=== PATIENT | female | born 1960 | race American Indian/Alaskan Native ===

== ENCOUNTER 2017-06-03 02:38 | Emergency (ER) | payer OTHER ==
--- NOTE | 2017-06-03 06:35 | XRay Report ---
FINAL REPORT PROCEDURE: XR CHEST ROUTINE 2V TECHNIQUE: A portable AP chest radiograph was obtained at 06/03/2017 06:03 (EST) . CPT 26066 HISTORY: SOB COMPARISON: No prior studies are available for comparison. FINDINGS: Heart: Normal. Mediastinum/Vessels: Normal. Lungs/Pleural space: Normal. Bony thorax: No acute osseous abnormality. Life support devices: None. IMPRESSION: No acute cardiopulmonary abnormality.
[2017-06-03] MEDS ORDERED: GUAIFENESIN DM SYRUP PO ONE (08:31)
[2017-06-03] MEDS ORDERED: MOTRIN PO ONE (08:31)
[2017-06-03] MEDS ORDERED: DUONEB *Not for PRN Use IH ONE (08:32)
[2017-06-03 08:37] LABS: Bacteria,Urine 1+ /HPF (Negative); Bilirubin,Urine NEG (Negative); Blood,Urine NEG (Negative); Color,Urine Yellow (Yellow); Mucus,Urine FEW /HPF; Nitrite,Urine NEG (Negative); Protein,Urine <15 mg/dL mg/dL (Negative)
[2017-06-03 09:09] VITALS: BP 142/96
--- NOTE | 2017-06-03 09:10 | Emergency Department Report ---
- General Chief Complaint: Upper Respiratory Infection Stated Complaint: URI SX Time Seen by Provider: 06/03/17 08:09 Source: patient Mode of arrival: Ambulatory Limitations: No Limitations - History of Present Illness Initial Comments: 57-year-old female past medical history brain aneurysm, CVA, hypertension, carotid aneurysm presents with complaint of 3 weeks of persistent cough, slightly productive of yellow sputum, postnasal drip, runny nose, intermittent sore throat. Patient is awake alert and oriented 3 not in acute distress fully lucid and nontoxic appearing. Patient is concerned she may have influenza. Denies abdominal pain, states she becomes nauseous after coughing fits. States she has had some sick contacts recently may have had the flu. MD Complaint: cough, rhinorrhea, nasal congestion Onset/Timin -: week(s) Severity: moderate Consistency: constant Improves With: nothing Context: sick contacts Associated Symptoms: rhinorrhea, nasal congestion, cough Treatments Prior to Arrival: "cold medicine" - Related Data Home Medications Medication Instructions Recorded Confirmed Last Taken Hydrochlorothiazide [Hctz] 12.5 mg PO QDAY 01/22/16 01/22/16 Unknown Lisinopril [Zestril] 40 mg PO DAILY 01/22/16 01/22/16 Unknown Previous Rx's Medication Instructions Recorded Last Taken Type Albuterol Sulfate [Ventolin HFA] 2 puff IH Q4H PRN #1 hfa.aer.ad 06/03/17 Unknown Rx Azithromycin [Zithromax Z-DORA] 250 mg PO QDAY #1 pack 06/03/17 Unknown Rx Benzonatate [Tessalon Perles] 100 mg PO Q8HR PRN #30 capsule 06/03/17 Unknown Rx Dextromethorphan Hb/Doxylamine 10 ml PO Q6H PRN #1 liquid 06/03/17 Unknown Rx [Safetussin Pm Liquid] Dextromethorphan/Benzocaine 1 each PO Q4H PRN #1 box 06/03/17 Unknown Rx [Cepacol Sorethroat-Cough Torres] Allergies Allergy/AdvReac Type Severity Reaction Status Date / Time acetaminophen Allergy Unknown Verified 01/22/16 16:15 [From Darvocet-N] propoxyphene napsylate Allergy Unknown Verified 01/22/16 16:15 [From Darvocet-N] ED Review of Systems ROS: Stated complaint: URI SX Other details as noted in HPI Constitutional: denies: chills, fever Eyes: denies: eye pain, eye discharge, vision change ENT: denies: ear pain, throat pain Respiratory: cough. denies: shortness of breath, wheezing Cardiovascular: denies: chest pain, palpitations Endocrine: no symptoms reported Gastrointestinal: denies: abdominal pain, nausea, diarrhea Genitourinary: denies: urgency, dysuria, discharge Musculoskeletal: denies: back pain, joint swelling, arthralgia Skin: denies: rash, lesions Neurological: denies: headache, weakness, paresthesias Psychiatric: denies: anxiety, depression Hematological/Lymphatic: denies: easy bleeding, easy bruising ED Past Medical Hx - Past Medical History Previous Medical History?: Yes Hx Hypertension: Yes Hx CVA: Yes Additional medical history: Right sided carotid aneurysm - Surgical History Past Surgical History?: No - Social History Smoking Status: Never Smoker Substance Use Type: Alcohol - Medications Home Medications: Home Medications Medication Instructions Recorded Confirmed Last Taken Type Hydrochlorothiazide [Hctz] 12.5 mg PO QDAY 01/22/16 01/22/16 Unknown History Lisinopril [Zestril] 40 mg PO DAILY 01/22/16 01/22/16 Unknown History Albuterol Sulfate [Ventolin HFA] 2 puff IH Q4H PRN #1 hfa.aer.ad 06/03/17 Unknown Rx Azithromycin [Zithromax Z-DORA] 250 mg PO QDAY #1 pack 06/03/17 Unknown Rx Benzonatate [Tessalon Perles] 100 mg PO Q8HR PRN #30 capsule 06/03/17 Unknown Rx Dextromethorphan Hb/Doxylamine 10 ml PO Q6H PRN #1 liquid 06/03/17 Unknown Rx [Safetussin Pm Liquid] Dextromethorphan/Benzocaine 1 each PO Q4H PRN #1 box 06/03/17 Unknown Rx [Cepacol Sorethroat-Cough Torres] ED Physical Exam - General Limitations: No Limitations General appearance: alert, in no apparent distress - Head Head exam: Present: atraumatic, normocephalic - Eye Eye exam: Present: normal appearance, PERRL, EOMI - ENT ENT exam: Present: mucous membranes moist - Neck Neck exam: Present: normal inspection, full ROM - Respiratory Respiratory exam: Present: normal lung sounds bilaterally (lungs clear to auscultation bilaterally). Absent: respiratory distress - Cardiovascular Cardiovascular Exam: Present: regular rate, normal rhythm. Absent: systolic murmur, diastolic murmur, rubs, gallop - GI/Abdominal GI/Abdominal exam: Present: soft (abdomen soft nontender nondistended), normal bowel sounds - Extremities Exam Extremities exam: Present: normal inspection - Back Exam Back exam: Present: normal inspection - Neurological Exam Neurological exam: Present: alert, oriented X3, CN II-XII intact, normal gait - Psychiatric Psychiatric exam: Present: normal affect, normal mood - Skin Skin exam: Present: warm, dry, intact, normal color. Absent: rash ED Course Vital Signs 06/03/17 05:43 Temperature 98.1 F Pulse Rate 81 Respiratory 16 Rate Blood Pressure 136/82 O2 Sat by Pulse 98 Oximetry ED Medical Decision Making - Medical Decision Making A/P: Acute bronchitis 1-x-ray unremarkable, flu swab negative. I tested patient given her age and other medical comorbidities. 2-vital signs stable for discharge 3-Tessalon Perles, throat lozenges, albuterol inhaler, safetussin ( for HTN pts) ,azithromycin 4-follow-up with primary care doctor Critical care attestation.: If time is entered above; I have spent that time in minutes in the direct care of this critically ill patient, excluding procedure time. ED Disposition Clinical Impression: Acute bronchitis Qualifiers: Bronchitis organism: unspecified organism Qualified Code(s): J20.9 - Acute bronchitis, unspecified Disposition: - TO HOME OR SELFCARE Is pt being admited?: No Does the pt Need Aspirin: No Condition: Stable Instructions: Acute Bronchitis (ED) Prescriptions: Albuterol Sulfate [Ventolin HFA] 2 puff IH Q4H PRN #1 hfa.aer.ad PRN Reason: Shortness Of Breath Azithromycin [Zithromax Z-DORA] 250 mg PO QDAY #1 pack Benzonatate [Tessalon Perles] 100 mg PO Q8HR PRN #30 capsule PRN Reason: Cough Dextromethorphan Hb/Doxylamine [Safetussin Pm Liquid] 10 ml PO Q6H PRN #1 liquid PRN Reason: Cough Dextromethorphan/Benzocaine [Cepacol Sorethroat-Cough Torres] 1 each PO Q4H PRN #1 box PRN Reason: Sore Throat Referrals: [facility] [Outside] - 3-5 Days [facility] [Outside] - 3-5 Days Forms: Work/School Release Form(ED) Time of Disposition: 09:12
== END 2017-06-03 09:58 | disposition home or self-care (01) ==
LOC: ED 02:38
DX: J20.9 Acute bronchitis, unspecified (principal); I10 Essential (primary) hypertension; Z87.891 Personal history of nicotine dependence; Z88.8 Allergy status to other drugs, medicaments and biological substances
CPT/HCPCS: 71046; 81001; 87400; 94640

== ENCOUNTER 2018-06-19 06:39 | Inpatient (IN) | payer OTHER ==
--- NOTE | 2018-06-19 08:53 | Emergency Department Report ---
ED Chest Pain HPI - General Chief Complaint: Chest Pain Stated Complaint: PAIN ON CHEST Time Seen by Provider: 06/19/18 08:49 Source: patient Mode of arrival: Ambulatory Limitations: No Limitations - History of Present Illness Initial Comments: Patient reports right and left side chest wall pain that started last night around 6pm while lying in bed. She denies dizziness, SOB, N/V, leg pain or recent traveling Complaint: chest pain Onset/Timin -: days(s) Time: 18:00 Onset: during rest Pain Location: left chest, right chest Pain Radiation: none Severity: moderate Severity scale (0 -10): 5 Quality: pressure Consistency: intermittent Improves With: rest Worsens With: movement Context: other (none) re: denies: nausea, vomting, diaphoresis, dyspnea, sense of impending doom Other Symptoms: denies: cough, fever, syncope, rash, acid taste in mouth, leg swelling, palpitations, burping Treatments Prior to Arrival: none Aspirin use within the Past 7 Days: (0) No - Related Data On Oral Contraceptives: No Home Medications Medication Instructions Recorded Confirmed Last Taken Lisinopril [Zestril] 40 mg PO DAILY 01/22/16 06/19/18 Unknown Carvedilol [Coreg] 6.25 mg PO BID 06/19/18 06/19/18 Unknown Previous Rx's Medication Instructions Recorded Last Taken Type AtorvaSTATin [Lipitor] 40 mg PO QHS tablet 06/21/18 Unknown Rx Potassium Chloride [K-Dur] 8 meq PO QDAY #30 tablet 06/21/18 Unknown Rx amLODIPine [Norvasc] 10 mg PO QDAY tablet 06/21/18 Unknown Rx hydroCHLOROthiazide [HCTZ] 12.5 mg PO QDAY capsule 06/21/18 Unknown Rx Allergies Allergy/AdvReac Type Severity Reaction Status Date / Time acetaminophen Allergy Unknown Verified 01/22/16 16:15 [From Darvocet-N] propoxyphene napsylate Allergy Unknown Verified 01/22/16 16:15 [From Darvocet-N] Heart Score - HEART Score History: Slightly suspicious EKG: Normal Age: 45-65 Risk factors: 1-2 risk factors Troponin: < normal limit HEART Score: 2 - Critical Actions Critical Actions: 0-3 pts:0.9-1.7%risk of adverse cardiac event.Candidate for discharge ED Review of Systems ROS: Stated complaint: PAIN ON CHEST Other details as noted in HPI Constitutional: denies: chills, fever Eyes: denies: eye pain, eye discharge, vision change ENT: denies: ear pain, throat pain Respiratory: denies: cough, shortness of breath, SOB with exertion, wheezing Cardiovascular: chest pain. denies: palpitations, dyspnea on exertion, edema, syncope, paroxysmal nocturnal dyspnea Endocrine: no symptoms reported Gastrointestinal: denies: abdominal pain, nausea, diarrhea Genitourinary: denies: urgency, dysuria, discharge Musculoskeletal: denies: back pain, joint swelling, arthralgia Skin: denies: rash, lesions Neurological: denies: headache, weakness, paresthesias Psychiatric: denies: anxiety, depression Hematological/Lymphatic: denies: easy bleeding, easy bruising ED Past Medical Hx - Past Medical History Previous Medical History?: Yes Hx Hypertension: Yes Hx CVA: Yes Additional medical history: Right sided carotid aneurysm - Surgical History Past Surgical History?: No - Social History Smoking Status: Never Smoker Substance Use Type: None - Medications Home Medications: Home Medications Medication Instructions Recorded Confirmed Last Taken Type Lisinopril [Zestril] 40 mg PO DAILY 01/22/16 06/19/18 Unknown History Carvedilol [Coreg] 6.25 mg PO BID 06/19/18 06/19/18 Unknown History AtorvaSTATin [Lipitor] 40 mg PO QHS tablet 06/21/18 Unknown Rx Potassium Chloride [K-Dur] 8 meq PO QDAY #30 tablet 06/21/18 Unknown Rx amLODIPine [Norvasc] 10 mg PO QDAY tablet 06/21/18 Unknown Rx hydroCHLOROthiazide [HCTZ] 12.5 mg PO QDAY capsule 06/21/18 Unknown Rx ED Physical Exam - General Limitations: No Limitations General appearance: alert, in no apparent distress - Head Head exam: Present: atraumatic, normocephalic - Eye Eye exam: Present: normal appearance - ENT ENT exam: Present: mucous membranes moist - Neck Neck exam: Present: normal inspection, full ROM. Absent: tenderness, meningismus, lymphadenopathy, thyromegaly - Respiratory Respiratory exam: Present: normal lung sounds bilaterally, chest wall tenderness (reproducible right and left ). Absent: respiratory distress, wheezes, rales, rhonchi, stridor, accessory muscle use, decreased breath sounds, prolonged expiratory - Cardiovascular Cardiovascular Exam: Present: regular rate, normal rhythm, normal heart sounds. Absent: bradycardia, tachycardia, irregular rhythm, systolic murmur, diastolic murmur, rubs, gallop - GI/Abdominal GI/Abdominal exam: Present: soft, normal bowel sounds. Absent: distended, tenderness, guarding, rebound, rigid - Extremities Exam Extremities exam: Present: normal inspection, full ROM, normal capillary refill. Absent: tenderness, pedal edema, joint swelling - Back Exam Back exam: Present: normal inspection, full ROM - Neurological Exam Neurological exam: Present: alert, oriented X3, CN II-XII intact, normal gait, reflexes normal. Absent: motor sensory deficit - Psychiatric Psychiatric exam: Present: normal affect, normal mood - Skin Skin exam: Present: warm, dry, intact, normal color. Absent: rash ED Course Vital Signs 06/19/18 06/19/18 06/19/18 06:42 06:44 11:50 Temperature 98.2 F 98.2 F Pulse Rate 79 77 61 Respiratory 20 20 18 Rate Blood Pressure 148/85 Blood Pressure 148/85 120/77 [Right] O2 Sat by Pulse 100 100 99 Oximetry 06/19/18 06/19/18 06/19/18 12:00 13:17 13:18 Temperature Pulse Rate 61 61 Respiratory 20 Rate Blood Pressure 120/77 120/77 Blood Pressure [Right] O2 Sat by Pulse Oximetry - Reevaluation(s) Reevaluation #1: 06/19/18 10:15 pain medication, EKG, imaging and laboratory studies ordered Reevaluation #2: 06/19/18 12:[address] Headley LUIS score - Luis Score Age > 65: (0) No Aspirin use within the Past 7 Days: (0) No 3 or more CAD Risk Factors: (0) No 2 or more Angina events in past 24 hrs: (0) No Known CAD with more than 50% Stenosis: (0) No Elevated Cardiac Markers: (0) No ST Deviation Greater than 0.5mm: (0) No LUIS Score: 0 ED Medical Decision Making - Lab Data Result diagrams: 06/19/18 09:07 06/19/18 09:07 Lab Results 06/19/18 06/19/18 Range/Units 09:07 09:07 WBC 6.9 (4.5-11.0) K/mm3 RBC 4.32 (3.65-5.03) M/mm3 Hgb 12.5 (10.1-14.3) gm/dl Hct 37.9 (30.3-42.9) % MCV 88 (79-97) fl MCH 29 (28-32) pg MCHC 33 (30-34) % RDW 14.0 (13.2-15.2) % Plt Count 323 (140-440) K/mm3 Lymph % (Auto) 28.1 (13.4-35.0) % [place] % (Auto) 8.8 H (0.0-7.3) % Eos % (Auto) 1.6 (0.0-4.3) % Baso % (Auto) 0.7 (0.0-1.8) % Lymph # 1.9 (1.2-5.4) K/mm3 [place] # 0.6 (0.0-0.8) K/mm3 Eos # 0.1 (0.0-0.4) K/mm3 Baso # 0.0 (0.0-0.1) K/mm3 Seg Neutrophils % 60.8 (40.0-70.0) % Seg Neutrophils # 4.2 (1.8-7.7) K/mm3 Sodium 142 (137-145) mmol/L Potassium 3.6 (3.6-5.0) mmol/L Chloride 100.7 (98-107) mmol/L Carbon Dioxide 29 (22-30) mmol/L Anion Gap 16 mmol/L BUN 13 (7-17) mg/dL Creatinine 0.8 (0.7-1.2) mg/dL Estimated GFR > 60 ml/min BUN/Creatinine Ratio 16 % Glucose 102 H (65-100) mg/dL Calcium 9.8 (8.4-10.2) mg/dL Total Bilirubin 0.30 (0.1-1.2) mg/dL AST 19 (5-40) units/L ALT 18 (7-56) units/L Alkaline Phosphatase 82 (35-129) units/L Troponin T < 0.010 (0.00-0.029) ng/mL Total Protein 7.7 (6.3-8.2) g/dL Albumin 3.9 (3.9-5) g/dL Albumin/Globulin Ratio 1.0 % - EKG Data EKG shows normal: sinus rhythm Rate: normal - EKG Data When compared to previous EKG there are: no significant change Interpretation: no acute changes, normal EKG - Radiology Data Radiology results: image reviewed The cardiomediastinal silhouette is normal. No focal consolidation. Mild linear opacities are seen in the left midlung. No pleural effusion. No pneumothorax. No acute osseous abnormality. IMPRESSION: Mild subsegmental left midlung atelectasis versus scarring. - Medical Decision Making During the course of ED, pain medication, EKG, imaging and laboratory studies ordered. Patient declined pain medication at this time because her pain has subsided. Imaging and laboratory studies were unremarkable. Patient's care was transferred over to Dr. Headley for admission to the hospital. No visible distress noted. - Differential Diagnosis Chest Pain, UT, Chostochondritis Critical Care Time: No Critical care attestation.: If time is entered above; I have spent that time in minutes in the direct care of this critically ill patient, excluding procedure time. ED Disposition Clinical Impression: Chest pain Qualifiers: Chest pain type: unspecified Qualified Code(s): R07.9 - Chest pain, unspecified Disposition: -09 OP ADMIT IP TO THIS HOSP Is pt being admited?: Yes Does the pt Need Aspirin: Yes Condition: Stable Instructions: Chest Pain (ED) Prescriptions: Potassium Chloride [K-Dur] 8 meq PO QDAY #30 tablet Referrals: ISELA LOPEZ MD [Primary Care Provider] - 3-5 Days
[2018-06-19] MEDS ORDERED: TORADOL IM ONE (09:34)
[2018-06-19 09:47] LABS: Basophils % (Auto) 0.7 % (0.0-1.8); Eosinophils # (Auto) 0.1 K/mm3 (0.0-0.4); Eosinophils % (Auto) 1.6 % (0.0-4.3); Hematocrit 37.9 % (30.3-42.9); Hemoglobin 12.5 gm/dl (10.1-14.3); Lymphocytes # (Auto) 1.9 K/mm3 (1.2-5.4); Lymphocytes % (Auto) 28.1 % (13.4-35.0); Mean Corpuscular HGB Conc 33 % (30-34); Mean Corpuscular Volume 88 fl (79-97); Monocytes # (Auto) 0.6 K/mm3 (0.0-0.8); Monocytes % (Auto) 8.8 % (0.0-7.3); Platelet Count 323 K/mm3 (140-440); Red Blood Count 4.32 M/mm3 (3.65-5.03)
[2018-06-19 09:48] LABS: Alanine Aminotransferase 18 units/L (7-56); Albumin 3.9 g/dL (3.9-5); BUN/Creatinine Ratio 16; Blood Urea Nitrogen 13 mg/dL (7-17); Calcium 9.8 mg/dL (8.4-10.2); Hemolysis Index 4
--- NOTE | 2018-06-19 11:10 | XRay Report ---
FINAL REPORT EXAM: XRAY CHEST 2 VIEWS HISTORY: chest pain TECHNIQUE: Frontal and lateral chest radiographs. PRIORS: 06/03/2017. FINDINGS: The cardiomediastinal silhouette is normal. No focal consolidation. Mild linear opacities are seen in the left midlung. No pleural effusion. No pneumothorax. No acute osseous abnormality. IMPRESSION: Mild subsegmental left midlung atelectasis versus scarring.
[2018-06-19 11:53] LABS: INR 0.84 (0.87-1.13)
[2018-06-19 11:54] LABS: Partial Thromboplastin Time 26.9 Sec. (24.2-36.6)
[2018-06-19] MEDS ORDERED: BABY ASPIRIN PO STA (12:37)
[2018-06-19] MEDS ORDERED: ZOFRAN IV PRN (12:37)
[2018-06-19] MEDS ORDERED: TYLENOL PO PRN (12:37)
[2018-06-19] MEDS ORDERED: PROVENTIL IH PRN (12:37)
[2018-06-19] MEDS ORDERED: NITROSTAT SL PRN (12:37)
[2018-06-19] MEDS ORDERED: SODIUM CHLORIDE FLUSH SYRINGE 10 ML IV PRN ×2 (12:37)
--- NOTE | 2018-06-19 12:37 | History and Physical Report ---
History of Present Illness Chief complaint: My chest hurts History of present illness: 58 YO Female with HTN, Obesity, CVA presents to ED for evaluation. Pt states that she has experienced pain in her chest over the past 1 day. Pt states that pain is 5-7/10, substernal, worsened with exertion, relieved with rest, inte rmittent, nonradiating. Pt acknowledges decreased exercise tolerance, and shortness of breath with exertion. Pt denies fever, chills, palpitations, shortness of breath, unilateral leg swelling, calf pain, prolonged travel/immobility, individual/family history of DVT/PE, skin rash, or recent ill contacts. Pt seen and evaluated in ED and found to have Chest pain, as well as suspected Diastolic CHF. Pt admitted to telemetry. Past History Past Medical History: diabetes, hypertension Past Surgical History: No surgical history Social history: single. denies: smoking, alcohol abuse, prescription drug abuse Family history: diabetes, hypertension Medications and Allergies Allergies Allergy/AdvReac Type Severity Reaction Status Date / Time acetaminophen Allergy Unknown Verified 01/22/16 16:15 [From Darvocet-N] propoxyphene napsylate Allergy Unknown Verified 01/22/16 16:15 [From Darvocet-N] Home Medications Medication Instructions Recorded Confirmed Last Taken Type Lisinopril [Zestril] 40 mg PO DAILY 01/22/16 06/19/18 Unknown History hydroCHLOROthiazide [Hctz] 12.5 mg PO QDAY 01/22/16 06/19/18 Unknown History Amlodipine Besylate [Norvasc] 10 mg PO QDAY 06/19/18 06/19/18 Unknown History Atorvastatin Calcium [Lipitor] 40 mg PO QDAY 06/19/18 06/19/18 Unknown History Carvedilol [Coreg] 6.25 mg PO BID 06/19/18 06/19/18 Unknown History Review of Systems Constitutional: no weight loss, no weight gain, no fever, no chills Ears, nose, mouth and throat: no ear pain, no ear discharge, no tinnitis, no d ecreased hearing, no nose pain Breasts: no change in shape, no swelling, no mass Cardiovascular: chest pain, dyspnea on exertion, decreased exercise tolerance Exam - Constitutional Vitals: Temp Pulse Resp BP Pulse Ox 98.2 F 61 20 120/77 99 06/19/18 06:42 06/19/18 11:50 06/19/18 12:00 06/19/18 11:50 06/19/18 11:50 General appearance: Present: mild distress, obese - EENT Eyes: Present: PERRL ENT: hearing intact, clear oral mucosa - Neck Neck: Present: supple, normal ROM - Respiratory Respiratory effort: normal Respiratory: bilateral: CTA - Cardiovascular Heart Sounds: Present: S1 & S2. Absent: rub, click - Extremities Extremities: pulses symmetrical, No edema Peripheral Pulses: within normal limits - Abdominal General gastrointestinal: Present: soft, non-tender, non-distended, normal bowel sounds Female genitourinary: Present: normal - Integumentary Integumentary: Present: clear, warm, dry - Musculoskeletal Musculoskeletal: gait normal, strength equal bilaterally - Psychiatric Psychiatric: appropriate mood/affect, intact judgment & insight - Neurologic Neurologic: CNII-XII intact, moves all extremities Results - Labs CBC & Chem 7: 06/19/18 09:07 06/19/18 09:07 Labs: Abnormal lab results 06/19/18 06/19/18 06/19/18 Range/Units 09:07 09:07 11:30 [place] % (Auto) 8.8 H (0.0-7.3) % PT 11.9 L (12.2-14.9) Sec. INR 0.84 L (0.87-1.13) Glucose 102 H (65-100) mg/dL Assessment and Plan - Patient Problems (1) Chest pain Current Visit: Yes Status: Acute Qualifiers: Ischemic chest pain type: stable angina pectoris Plan to address problem: Admit to telemetry: Serial cardiac enzymes, ekg, telemetry, stress test, cardiology consulted in ED, morphine, supplemental oxygen, nitro, aspirin. (2) Diastolic CHF Current Visit: Yes Status: Suspected Qualifiers: Heart failure chronicity: acute Qualified Code(s): I50.31 - Acute diastolic (congestive) heart failure Plan to address problem: Admit to telemetry: Cardiology consulted in ED, serial cardiac enzymes, BNP, D dimer, Echo, Afterload reduction, monitor uop q shift, daily weight, strict I/O, (3) Obesity hypoventilation syndrome Current Visit: Yes Status: Acute Plan to address problem: supplemental oxygen, NIPPV as clinically indicated, increased physical activity and balanced diet at discharge (4) GERD (gastroesophageal reflux disease) Current Visit: Yes Status: Acute Plan to address problem: PPI therapy, outpatient GI F/U for screening endoscopy (5) DVT prophylaxis Current Visit: Yes Status: Acute Plan to address problem: SCD to BLE while in bed.
[2018-06-19 13:00] LABS: Chol/HDL Ratio 2.66 %
[2018-06-19] MEDS ORDERED: COREG ONE (13:14)
[2018-06-19] MEDS ORDERED: ZESTRIL ONE (13:14)
[2018-06-19] MEDS ORDERED: HCTZ ONE (13:15)
[2018-06-19] MEDS ORDERED: NORVASC ONE (13:15)
[2018-06-19] MEDS: COREG PO SCH ×2 (13:17→22:02)
[2018-06-19] MEDS: HCTZ PO SCH (13:17)
[2018-06-19] MEDS: ZESTRIL PO SCH (13:18)
[2018-06-19] MEDS: NORVASC PO SCH (13:18)
[2018-06-19] MEDS: SODIUM CHLORIDE FLUSH SYRINGE 10 ML IV SCH (22:03)
[2018-06-20] MEDS: NORVASC PO SCH (11:39)
[2018-06-20] MEDS: COREG PO SCH ×2 (11:58→22:37)
[2018-06-20] MEDS: HCTZ PO SCH (12:00)
[2018-06-20] MEDS: SODIUM CHLORIDE FLUSH SYRINGE 10 ML IV SCH ×2 (12:01→22:38)
[2018-06-20] MEDS: ZESTRIL PO SCH (12:01)
--- NOTE | 2018-06-20 12:18 | Consultation ---
History of Present Illness Consult date: 06/20/18 Consult reason: chest pain History of present illness: 58 YO Female with HTN, Obesity, prior CVA who is currently admitted with chest pain. She describes the pain as a substernal pain which is worsened with exertion, relieved with rest, intermittent, nonradiating. Pt acknowledges decreased exercise tolerance, and shortness of breath with exertion. Pt denies fever, chills, palpitations, shortness of breath, unilateral leg swelling, calf pain, prolonged travel/immobility, individual/family history of DVT/PE, skin rash, or recent ill contacts. She had echocardiogram on 01/22/16 which revealed normal LVEF of 60-65% and no signfiicant valvular lesions. ECG reveals sinus bradycardia at 59 bpm and is otherwise unremarkable. Past History Past Medical History: diabetes, hypertension Past Surgical History: No surgical history Social history: single. denies: smoking, alcohol abuse, prescription drug abuse Family history: diabetes, hypertension Medications and Allergies Allergies Allergy/AdvReac Type Severity Reaction Status Date / Time acetaminophen Allergy Unknown Verified 01/22/16 16:15 [From Darvocet-N] propoxyphene napsylate Allergy Unknown Verified 01/22/16 16:15 [From Darvocet-N] Home Medications Medication Instructions Recorded Confirmed Last Taken Type Lisinopril [Zestril] 40 mg PO DAILY 01/22/16 06/19/18 Unknown History hydroCHLOROthiazide [Hctz] 12.5 mg PO QDAY 01/22/16 06/19/18 Unknown History Amlodipine Besylate [Norvasc] 10 mg PO QDAY 06/19/18 06/19/18 Unknown History Atorvastatin Calcium [Lipitor] 40 mg PO QDAY 06/19/18 06/19/18 Unknown History Carvedilol [Coreg] 6.25 mg PO BID 06/19/18 06/19/18 Unknown History Active Meds: Active Medications Acetaminophen (Tylenol) 650 mg PO Q4H PRN PRN Reason: Pain MILD(1-3)/Fever >100.5/TERESA Albuterol (Proventil) 2.5 mg IH Q4H PRN PRN Reason: Shortness Of Breath Amlodipine Besylate (Norvasc) 10 mg PO QDAY JACQUI Last Admin: 06/20/18 11:39 Dose: 10 mg Documented by: Atorvastatin Calcium (Lipitor) 40 mg PO QHS [facility] Last Admin: 06/19/18 22:03 Dose: 40 mg Documented by: Carvedilol (Coreg) 6.25 mg PO BID [facility] Last Admin: 06/20/18 11:58 Dose: 6.25 mg Documented by: Hydrochlorothiazide (Hctz) 12.5 mg PO QDAY [facility] Last Admin: 06/20/18 12:00 Dose: Not Given Documented by: Lisinopril (Zestril) 40 mg PO QDAY [facility] Last Admin: 06/20/18 12:01 Dose: Not Given Documented by: Nitroglycerin (Nitrostat) 0.4 mg SL Q5M PRN PRN Reason: Chest Pain Ondansetron HCl (Zofran) 4 mg IV Q8H PRN PRN Reason: Nausea And Vomiting Sodium Chloride (Sodium Chloride Flush Syringe 10 Ml) 10 ml IV BID [facility] Last Admin: 06/20/18 12:01 Dose: Not Given Documented by: Sodium Chloride (Sodium Chloride Flush Syringe 10 Ml) 10 ml IV PRN PRN PRN Reason: LINE FLUSH Sodium Chloride (Sodium Chloride Flush Syringe 10 Ml) 10 ml IV PRN PRN PRN Reason: LINE FLUSH Review of Systems All systems: negative (per hpi) Physical Examination Vital Signs Temp Pulse Resp BP Pulse Ox 98.2 F 79 20 148/85 100 06/19/18 06:42 06/19/18 06:42 06/19/18 06:42 06/19/18 06:42 06/19/18 06:42 General appearance: no acute distress HEENT: Positive: PERRL, EOMI Neck: Positive: neck supple Cardiac: Positive: Reg Rate and Rhythm Lungs: Positive: clear to auscultation Abdomen: Positive: Soft, Active Bowel Sounds Results 06/19/18 09:07 06/19/18 09:07 Lipids 06/19/18 Range/Units Unknown Triglycerides 73 (2-149) mg/dL Cholesterol 141 (50-199) mg/dL HDL Cholesterol 53 (40-59) mg/dL Cholesterol/HDL Ratio 2.66 % Assessment and Plan Chest pain with typical and atypical features for angina DM Htn Recommend: Check MPI tomorrow
--- NOTE | 2018-06-20 16:26 | Progress Note ---
Assessment and Plan (1) Chest pain Current Visit: Yes Status: Acute Qualifiers: Ischemic chest pain type: stable angina pectoris Plan to address problem: troponins negative For MPI on Thursday If negative discharge (2) Diastolic CHF Current Visit: Yes Status: Suspected Qualifiers: Heart failure chronicity: acute Qualified Code(s): I50.31 - Acute diastolic (congestive) heart failure Plan to address problem: AEcho, Afterload reduction, monitor uop q shift, daily weight, strict I/O, (3) Obesity hypoventilation syndrome Current Visit: Yes Status: Acute Plan to address problem: supplemental oxygen, NIPPV as clinically indicated, increased physical activity and balanced diet at discharge (4) GERD (gastroesophageal reflux disease) Current Visit: Yes Status: Acute Plan to address problem: PPI therapy, outpatient GI F/U for screening endoscopy (5) DVT prophylaxis Current Visit: Yes Status: Acute Plan to address problem: SCD to BLE while in bed. Subjective Date of service: 06/20/18 Principal diagnosis: Chest pain r/o [place] Interval history: Chest pain better Objective - Constitutional Vitals: Vital Signs - 12hr 06/20/18 06/20/18 06/20/18 05:00 05:11 11:23 Temperature 98.0 F Pulse Rate 61 65 64 Respiratory 20 Rate Blood Pressure 107/63 100/60 O2 Sat by Pulse 97 98 Oximetry 06/20/18 06/20/18 06/20/18 11:39 11:58 12:01 Temperature Pulse Rate 65 64 64 Respiratory Rate Blood Pressure 107/63 100/63 100/63 O2 Sat by Pulse Oximetry General appearance: Present: no acute distress, well-nourished - EENT Eyes: PERRL, EOM intact ENT: hearing intact, clear oral mucosa Ears: bilateral: normal - Neck Neck: supple, normal ROM - Respiratory Respiratory effort: normal Respiratory: bilateral: CTA - Breasts Breasts: normal - Cardiovascular Heart rate: 78 Rhythm: regular Heart Sounds: Present: S1 & S2. Absent: gallop, rub Extremities: no ischemia, pulses intact, No edema, normal color, Full ROM - Gastrointestinal General gastrointestinal: Present: soft, non-tender, non-distended, normal bowel sounds - Genitourinary Female genitourinary: normal - Integumentary Integumentary: clear, warm, dry - Musculoskeletal Musculoskeletal: 1, strength equal bilaterally - Neurologic Neurologic: moves all extremities - Psychiatric Psychiatric: memory intact, appropriate mood/affect, intact judgment & insight - Labs CBC & Chem 7: 06/19/18 09:07 06/19/18 09:07
[2018-06-21] MEDS ORDERED: LEXISCAN IV ONE ×2 (09:30→09:31)
[2018-06-21] MEDS ORDERED: ZESTRIL PO SCH (10:00)
[2018-06-21] MEDS: HCTZ PO SCH (11:44)
[2018-06-21] MEDS: COREG PO SCH (11:44)
[2018-06-21] MEDS: NORVASC PO SCH (11:44)
[2018-06-21 11:45] VITALS: BP 142/92
--- NOTE | 2018-06-21 14:48 | Discharge Summary ---
Providers - Providers Date of Admission: 06/19/18 13:01 Date of discharge: 06/21/18 Attending physician: LANA TIPTON 06/19/18 Consult to Cardiac Rehabilitation [CONS] Routine Reason For Exam: Phase I 06/19/18 12:37 Consult to Cardiology [CONS] Routine Consulting Provider: ROSIE CARTER Reason For Exam: diastolic chf/chest pain Primary care physician: ISELA LOPEZ Hospitalization Condition: Stable Hospital course: Patient admitted for chest pain rule out HI CHF hypertension obesity and gastroesophageal reflux disease Troponins were negative Myocardial perfusion scan was negative 1) Chest pain Current Visit: Yes Status: Acute Qualifiers: Ischemic chest pain type: stable angina pectoris Plan to address problem: troponins negative MPI - Negative If negative discharge (2) Diastolic CHF Current Visit: Yes Status: Suspected Qualifiers: Heart failure chronicity: acute Qualified Code(s): I50.31 - Acute diastolic (congestive) heart failure Plan to address problem: Echo, -33 to 60 percent (3) Obesity hypoventilation syndrome Current Visit: Yes Status: Acute Plan to address problem: Patient was seen eating junk food in excess consuming about 700 martha more in a day Patient counseled about her effect of junk food and eating unnecessarily. Patient counseled about regular exercise and walking. (4) GERD (gastroesophageal reflux disease) Current Visit: Yes Status: Acute Plan to address problem: PPI therapy, outpatient GI F/U for screening endoscopy (5) hypertension 5) hypertension Continue antihypertensives Added potassium chloride because the patient is on hydrochlorothiazide Disposition: DC-01 TO HOME OR SELFCARE Core Measure Documentation - Palliative Care Palliative Care/ Comfort Measures: Not Applicable - Core Measures Any of the following diagnoses?: none Exam - Constitutional Vitals: Temp Pulse Resp BP Pulse Ox 98.3 F 75 20 142/92 97 06/21/18 04:46 06/21/18 11:44 06/21/18 11:46 06/21/18 11:46 06/21/18 12:00 General appearance: Present: no acute distress, well-nourished - EENT Eyes: Present: PERRL ENT: hearing intact, clear oral mucosa - Neck Neck: Present: supple, normal ROM - Respiratory Respiratory effort: normal Respiratory: bilateral: CTA - Cardiovascular Heart rate: 78 Rhythm: regular Heart Sounds: Present: S1 & S2. Absent: rub, click - Extremities Extremities: pulses symmetrical, No edema Peripheral Pulses: within normal limits - Abdominal General gastrointestinal: Present: soft, non-tender, non-distended, normal bowel sounds Female genitourinary: Present: normal - Integumentary Integumentary: Present: clear, warm, dry - Musculoskeletal Musculoskeletal: gait normal, strength equal bilaterally - Psychiatric Psychiatric: appropriate mood/affect, intact judgment & insight - Neurologic Neurologic: CNII-XII intact, moves all extremities Plan Activity: no restrictions Diet: low fat, low cholesterol, low salt Follow up with: ISELA LOPEZ MD [Primary Care Provider] - 3-5 Days Prescriptions: Potassium Chloride [K-Dur] 8 meq PO QDAY #30 tablet
--- NOTE | 2018-06-23 09:21 | Treadmill Report ---
ORDERING PHYSICIAN: Kayden Headley MD INDICATION: Chest pain. FINDINGS: There is no scintigraphic evidence of myocardial ischemia. The left ventricle is normal in size and systolic function. Left ventricular ejection fraction is measured at 58%. There is normal wall motion and wall thickening noted on gated imaging. CONCLUSION: Normal perfusion scan. JOB# [id number] ERYN/YANG
== END 2018-06-21 16:04 | disposition home or self-care (01) | DRG 291 ==
LOC: ED 06:39 → 4A 13:01
PROVIDERS: ADMIT Internal Medicine; ATTEND Internal Medicine
DX: I11.0 Hypertensive heart disease with heart failure (principal); I50.31 Acute diastolic (congestive) heart failure; E66.2 Morbid (severe) obesity with alveolar hypoventilation; Z68.42 Body mass index [BMI] 45.0-49.9, adult; I20.8 Other forms of angina pectoris; K21.9 Gastro-esophageal reflux disease without esophagitis; Z88.8 Allergy status to other drugs, medicaments and biological substances; Z86.73 Personal history of transient ischemic attack (TIA), and cerebral infarction without residual deficits; Z83.3 Family history of diabetes mellitus; Z82.49 Family history of ischemic heart disease and other diseases of the circulatory system
CPT/HCPCS: 36415; 71046; 78452; 80053; 80061; 83880; 84484; 85025; 85379; 85610; 85730; 93005; 93010; 93017; 93306; G0378; A9270-GY; A9502; J1885; J2785

== ENCOUNTER 2019-08-06 23:30 | Emergency (ER) | payer BC, OTHER ==
[2019-08-06] MEDS ORDERED: SODIUM CHLORIDE 0.9% 500 ML 500 ML IV ONE (23:44)
[2019-08-07 00:29] LABS: Basophils # (Auto) 0.1 K/mm3 (0.0-0.1); Basophils % (Auto) 0.5 % (0.0-1.8); Eosinophils # (Auto) 0.1 K/mm3 (0.0-0.4); Eosinophils % (Auto) 0.6 % (0.0-4.3); Hematocrit 35.2 % (30.3-42.9); Hemoglobin 11.6 gm/dl (10.1-14.3); Lymphocytes # (Auto) 1.5 K/mm3 (1.2-5.4); Lymphocytes % (Auto) 11.2 % (13.4-35.0); Mean Corpuscular HGB Conc 33 % (30-34); Mean Corpuscular Volume 87 fl (79-97); Monocytes # (Auto) 0.8 K/mm3 (0.0-0.8); Monocytes % (Auto) 6.2 % (0.0-7.3); Platelet Count 349 K/mm3 (140-440); Red Blood Count 4.05 M/mm3 (3.65-5.03)
[2019-08-07 00:41] LABS: INR 0.96 (0.87-1.13)
[2019-08-07 00:53] LABS: Alanine Aminotransferase 16 units/L (7-56); Albumin 4.1 g/dL (3.9-5); BUN/Creatinine Ratio 17; Blood Urea Nitrogen 15 mg/dL (7-17); Calcium 10.1 mg/dL (8.4-10.2); Hemolysis Index 4
--- NOTE | 2019-08-07 01:44 | XRay Report ---
CHEST 2 VIEWS INDICATION / CLINICAL INFORMATION: Possible sepsis. COMPARISON: 06/19/18. FINDINGS: SUPPORT DEVICES: None. HEART / MEDIASTINUM: The heart size and pulmonary vasculature are normal. LUNGS / PLEURA: No significant pulmonary or pleural abnormality. No pneumothorax. ADDITIONAL FINDINGS: No significant additional findings. IMPRESSION: No acute abnormality or significant change. Signer Name: Jasiel Lebron MD Signed: 08/07/2019 1:40 AM Workstation Name: [id number]
--- NOTE | 2019-08-07 02:38 | Emergency Department Report ---
- General Chief Complaint: Upper Respiratory Infection Stated Complaint: FEVER/COUGHING/CHILLS Time Seen by Provider: 08/07/19 02:20 Source: EMS Mode of arrival: Ambulatory Limitations: No Limitations - History of Present Illness Initial Comments: Patient is a 59-year-old female that presents emergency room with complaints of cough and fever and chills. Patient states her fever started 2 days ago. Patient states her dry cough started 1 week ago. Patient states her symptoms a re worsening. Patient denies shortness of breath and chest pain. Patient denies headache. Patient denies sore throat. Patient complains of a runny nose. Patient denies diarrhea and nausea and vomiting. Patient states she is not allergic to Tylenol or acetaminophen but she is only allergic to Darvocet Patient denies recent travel. Patient denies recent international travel. Patient denies exposure to the novel coronavirus. Patient denies sick contacts. Patient denies diarrhea. Patient denies coming in contact with anybody with symptoms of the novel coronavirus. MD Complaint: fever, cough -: Sudden Severity: severe Consistency: constant Improves With: rest Worsens With: activity Associated Symptoms: fever, rhinorrhea, cough. denies: chills, myalgias, diaphoresis, headache, nasal congestion, sore throat, stiff neck, chest pain, shortness of breath, abdominal pain, nausea, vomiting, diarrhea, dysuria, rash, confusion, right sweats, weight loss, epistaxis, hoarseness, ear pain Treatments Prior to Arrival: Acetaminophen - Related Data Home Medications Medication Instructions Recorded Confirmed Last Taken Lisinopril [Zestril] 40 mg PO DAILY 01/22/16 06/19/18 Unknown Carvedilol [Coreg] 6.25 mg PO BID 06/19/18 06/19/18 Unknown Previous Rx's Medication Instructions Recorded Last Taken Type AtorvaSTATin [Lipitor] 40 mg PO QHS tablet 06/21/18 Unknown Rx Potassium Chloride [K-Dur] 8 meq PO QDAY #30 tablet 06/21/18 Unknown Rx amLODIPine 10 mg PO QDAY tablet 06/21/18 Unknown Rx hydroCHLOROthiazide [HCTZ] 12.5 mg PO QDAY capsule 06/21/18 Unknown Rx Allergies Allergy/AdvReac Type Severity Reaction Status Date / Time acetaminophen Allergy Unknown Verified 01/22/16 16:15 [From Darvocet-N] propoxyphene napsylate Allergy Unknown Verified 01/22/16 16:15 [From Elliot-Doreen] ED Review of Systems ROS: Stated complaint: FEVER/COUGHING/CHILLS Other details as noted in HPI Constitutional: chills, fever Eyes: denies: eye pain, eye discharge, vision change ENT: denies: ear pain, throat pain Respiratory: cough. denies: shortness of breath, wheezing Cardiovascular: denies: chest pain, palpitations Endocrine: no symptoms reported Gastrointestinal: denies: abdominal pain, nausea, diarrhea Genitourinary: denies: urgency, dysuria, discharge Musculoskeletal: denies: back pain, joint swelling, arthralgia Skin: denies: rash, lesions Neurological: denies: headache, weakness, paresthesias Psychiatric: denies: anxiety, depression Hematological/Lymphatic: denies: easy bleeding, easy bruising ED Past Medical Hx - Past Medical History Previous Medical History?: Yes Hx Hypertension: Yes Hx CVA: Yes Hx Congestive Heart Failure: No Hx Diabetes: No Hx Asthma: No Hx COPD: No Additional medical history: Right sided carotid aneurysm - Surgical History Past Surgical History?: Yes - Social History Smoking Status: Never Smoker Substance Use Type: Alcohol - Medications Home Medications: Home Medications Medication Instructions Recorded Confirmed Last Taken Type Lisinopril [Zestril] 40 mg PO DAILY 01/22/16 06/19/18 Unknown History Carvedilol [Coreg] 6.25 mg PO BID 06/19/18 06/19/18 Unknown History AtorvaSTATin [Lipitor] 40 mg PO QHS tablet 06/21/18 Unknown Rx Potassium Chloride [K-Dur] 8 meq PO QDAY #30 tablet 06/21/18 Unknown Rx amLODIPine 10 mg PO QDAY tablet 06/21/18 Unknown Rx hydroCHLOROthiazide [HCTZ] 12.5 mg PO QDAY capsule 06/21/18 Unknown Rx ED Physical Exam - General Limitations: No Limitations General appearance: alert, in no apparent distress - Head Head exam: Present: atraumatic, normocephalic - Eye Eye exam: Present: normal appearance - ENT ENT exam: Present: mucous membranes moist - Neck Neck exam: Present: normal inspection - Respiratory Respiratory exam: Present: normal lung sounds bilaterally. Absent: respiratory distress, wheezes, rales - Cardiovascular Cardiovascular Exam: Present: regular rate, normal rhythm. Absent: systolic murmur, diastolic murmur, rubs, gallop - GI/Abdominal GI/Abdominal exam: Present: soft, normal bowel sounds. Absent: distended, tenderness, guarding - Extremities Exam Extremities exam: Present: normal inspection - Back Exam Back exam: Present: normal inspection - Neurological Exam Neurological exam: Present: alert, oriented X3 - Psychiatric Psychiatric exam: Present: normal affect, normal mood - Skin Skin exam: Present: warm, dry, intact, normal color. Absent: rash ED Course Vital Signs 08/06/19 08/06/19 08/06/19 23:35 23:37 23:42 Temperature 100.3 F H 100.3 F H Pulse Rate 121 H 124 H Respiratory 20 28 H 18 Rate Blood Pressure 157/86 157/99 Blood Pressure [Right] O2 Sat by Pulse 98 98 100 Oximetry 08/07/19 02:33 Temperature Pulse Rate 97 H Respiratory 20 Rate Blood Pressure Blood Pressure 147/81 [Right] O2 Sat by Pulse 98 Oximetry - Reevaluation(s) Reevaluation #1: I discussed all results and clinical findings with patient. I discussed plan of care with patient. Patient agrees with plan of care. Patient is stable for discharge. Patient will be discharged home. Patient given discharge instructions. Patient voiced understanding of discharge instructions. 08/07/19 02:40 Reevaluation #2: Patient instructed to self quarantine for 14 days. I instructed the patient that somebody from the health department will be contacting her for her co ronavirus test. Patient instructed not to take ibuprofen. Patient instructed to have a strict lockdown and quarantine at home by herself. Patient to be off work for 14 days. Patient to take Tylenol as needed. Patient states she is not allergic to Tylenol she is only allergic to the effects of Darvocet. Patient states she takes Tylenol all the time. Patient's information uploaded into the person under investigation for the novel coronavirus system. I discussed all results and clinical findings with patient. I discussed plan of care with patient. Patient agrees with plan of care. Patient is stable for discharge. Patient will be discharged home. Patient given discharge instructions. Patient voiced understanding of discharge instructions. 08/07/19 03:50 ED Medical Decision Making - Lab Data Result diagrams: 08/07/19 00:02 08/07/19 00:02 - Radiology Data Radiology results: report reviewed, image reviewed CHEST 2 VIEWS INDICATION / CLINICAL INFORMATION: Possible sepsis. COMPARISON: 06/19/18. FINDINGS: SUPPORT DEVICES: None. HEART / MEDIASTINUM: The heart size and pulmonary vasculature are normal. LUNGS / PLEURA: No significant pulmonary or pleural abnormality. No pneumothorax. ADDITIONAL FINDINGS: No significant additional findings. IMPRESSION: No acute abnormality or significant change. - Medical Decision Making Patient is a 59-year-old female that presents emergency room with complaints of fever, chills and cough. Patient's labs are essentially unremarkable. Patient has suspected coronavirus. Patient information placed into the [employer] coronavirus system. Patient chest x-ray negative. Patient stable for discharge. Patient discharged home. Patient given strict self quarantine orders for 14 days. Patient given all discharge instructions. - Differential Diagnosis Cough, coronavirus, URI, fever, flu Critical care attestation.: If time is entered above; I have spent that time in minutes in the direct care of this critically ill patient, excluding procedure time. ED Disposition Clinical Impression: Suspected 2019 novel coronavirus infection, Cough Upper respiratory infection Qualifiers: URI type: unspecified URI Qualified Code(s): J06.9 - Acute upper respiratory infection, unspecified Fever Qualifiers: Fever type: unspecified Qualified Code(s): R50.9 - Fever, unspecified Disposition: DC-01 TO HOME OR SELFCARE Is pt being admited?: No Does the pt Need Aspirin: No Condition: Stable Instructions: COVID-19, Fever in Adults (ED), Upper Respiratory Infection (ED), Viral Syndrome (ED), Cold Symptoms (ED) Additional Instructions: Patient to self quarantine at home alone for 14 days. Patient will be contacted by the health department for a possible coronavirus testing. Patient to follow-up with primary care in 2 to 3 days. Patient to contact health department and CBC within 2 to 3 days. Patient to rest. Patient to increase water. Patient to take Tylenol as needed for pain. Patient to return to the ER if condition worsens, changes or new symptoms arise. Referrals: JEANA SALCIDO MD [Primary Care Provider] - 2-3 Days Time of Disposition: 02:56
[2019-08-07 05:07] VITALS: BP 152/78
== END 2019-08-07 04:30 | disposition home or self-care (01) ==
LOC: ED 23:30
DX: J06.9 Acute upper respiratory infection, unspecified (principal); I10 Essential (primary) hypertension; Z20.828 Contact with and (suspected) exposure to other viral communicable diseases; Z86.73 Personal history of transient ischemic attack (TIA), and cerebral infarction without residual deficits; Z79.899 Other long term (current) drug therapy; Z88.8 Allergy status to other drugs, medicaments and biological substances
CPT/HCPCS: 36415; 71046; 80053; 82140; 82805; 85025; 85610; 87040; 87400